=== PATIENT | female | born 1985 | race Caucasian/White ===

== ENCOUNTER → 2016-12-03 | Outpatient (CLI) | payer OTHER | LOC: FIMAGING 10:02 | PROVIDERS: ATTEND Advanced Practice Midwife | DX: O26.872 Cervical shortening, second trimester (principal); Z3A.19 19 weeks gestation of pregnancy ==

== ENCOUNTER → 2016-12-17 | Outpatient (CLI) | payer OTHER | LOC: FIMAGING 12:50 | PROVIDERS: ATTEND Advanced Practice Midwife | DX: Z34.02 Encounter for supervision of normal first pregnancy, second trimester (principal); Z3A.21 21 weeks gestation of pregnancy ==

== ENCOUNTER 2017-04-26 09:43 | Inpatient (IN) | payer OTHER ==
[2017-04-26] MEDS ORDERED: OXYTOCIN/RINGERS LACTATE 1,000 ML IV PRN (10:14)
[2017-04-26] MEDS ORDERED: OLIVE OIL 118 ML BTL MISC PRN (10:14)
[2017-04-26] MEDS ORDERED: EPSOM SALT 454 GM TP PRN (10:14)
[2017-04-26] MEDS ORDERED: TERBUTALINE SULFATE 1 MG/ML VIAL IV PRN (10:14)
[2017-04-26] MEDS ORDERED: LR 1,000 ML IV PRN (10:14)
[2017-04-26] MEDS ORDERED: OXYTOCIN/RINGERS LACTATE 500 ML IV SCH (11:00)
[2017-04-26 11:06] LABS: ALANINE AMINOTRANSFERASE 94 IU/L (9-52); ASPARTATE AMINOTRANSFERASE 74 IU/L (14-46); BILIRUBIN,TOTAL 1.3 mg/dL (0.1-1.4); BILIRUBIN-CONJUGATED 0.5 mg/dL (0.0-0.5); BILIRUBIN-UNCONJUGATED 0.8 mg/dL (0.0-1.1); CREATININE 0.6 mg/dL (0.6-1.0); GLOMERULAR FILTRATION RATE > 60; LACTATE DEHYDROGENASE 659 IU/L (313-618); SPECIMEN HEMOLYSIS 104; URIC ACID 5.5 mg/dL (2.5-6.8)
[2017-04-26 11:13] LABS: % IMMATURE GRANULYOCYTES 0.6 % (0.0-1.1); ABSOLUTE IMMATURE GRANULOCYTES 0.15 10^3/uL (0.00-0.10); ADD DIFF? NO; ADD MORPH? NO; ADD SCAN? NO; ATYPICAL LYMPHOCYTE FLAG 0 (0-99); FRAGMENT RBC FLAG 0 (0-99); HEMATOCRIT 38.2 % (38.0-47.0); LEFT SHIFT FLG 0 (0-99); LIPEMIA HEMOLYSIS FLAG 90 (0-99); MEAN CELL HEMOGLOBIN 33.8 pg (27.9-34.1); MEAN CELL HEMOGLOBIN CONCENTR. 36.6 g/dL (32.4-36.7); MEAN CELL VOLUME 92.3 fL (81.5-99.8); MEAN PLATELET VOLUME 11.7 fL (8.7-11.7); PLATELET CLUMPS FLAG 0 (0-99); PLATELET COUNT 184 10^3/uL (150-400); RED BLOOD CELL COUNT 4.14 10^6/uL (4.18-5.33); RED CELL DISTRIBUTION WIDTH 12.2 % (11.5-15.2)
--- NOTE | 2017-04-26 11:38 | GHP ---
[f rep st] PREOP HISTORY AND PHYSICAL DATE OF ADMISSION: 04/26/2017 ADMISSION DIAGNOSIS: Intrauterine at 40-1/7 weeks' gestation, with prolonged rupture of membranes and inadequate contractions. HISTORY OF PRESENT ILLNESS: The patient is a 31-year-old 1, para 0, who is 40-1/7 weeks' gestation. She initially received care at [facility] and then transferred to the [facility] and received the remainder of her care there. The patient had spontaneous rupture of membranes of clear fluid on Wednesday, 04/24 at 1900. She began having mild contractions 30 minutes after that, but did not progress into adequate labor. She presented to the [facility], and they put in a Cook catheter at 1530 on 04/25. The patient began having contractions increasing in frequency and intensity at 9 p.m. She had been sent home from the [facility] and came back in, in the morning, at 3:30. She was examined on and was found to be 5 cm dilated, 90% effaced, and -1 station. She was re- examined 5 hours later, at 8:30 in the morning, and was still 5 cm dilated, 90% effaced, and -1 station. She presents to Labor and Delivery for augmentation of labor and possible pain management. Her status is reassuring. Patient is afebrile. PAST MEDICAL HISTORY: Significant for hypothyroidism diagnosed in . History of depression in college that required medication, but she has not had any depression since then. MEDICATIONS: Synthroid. PAST SURGICAL HISTORY: Removal of a cyst in her neck. ALLERGIES: No known drug allergies. SOCIAL HISTORY: Patient is . She denies tobacco, alcohol, or drug use. FAMILY MEDICAL HISTORY: Noncontributory. 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 She is receiving regular care at the [facility]. The patient does have a history of an abnormal Pap when she was 17. The colpo was negative. She denies any history of any sexually transmitted diseases. REVIEW OF SYSTEMS: Ten-point review of systems is negative, with the exception of the positive contractions, good movement, and loss of fluid. She denies any vaginal bleeding. She denies any headache, changes in vision, nausea , or vomiting. PHYSICAL EXAM: VITAL SIGNS: Stable. She did have 2 borderline elevated blood pressures of 141/97 and 145/89. GENERAL: Her general appearance is exhausted, but alert and oriented x3. Her psych exam is appropriate affect. NECK: Mobile , and there are no masses noted. HEART: Her heart rate is regular/regular. LUNGS: Her lungs are clear to auscultation bilaterally. ABDOMEN: Her abdomen is gravid, nondistended, nontender. EXTREMITIES: Reveal no calf tenderness or edema. PELVIC: Cervical exam was deferred. heart tracing is category 2. She is having variable decelerations but positive accelerations and no other decelerations. She is having contractions every 5-7 minutes. LABORATORY DATA: The patient's labs, blood type B positive, antibody screen negative. Rubella immune. GBS negative. HBsAg negative. HIV negative. ASSESSMENT AND PLAN: A 31-year-old 1, para 0, at 40-1/2 weeks' gestation with prolonged rupture of membranes and elevated blood pressures. We had a long discussion about management options. The patient is agreeable to starting Pitocin. We discussed pain management options. We will check preeclampsia labs and follow her blood pressures. The patient will be managed expectantly. /[id number]/MODL MTDD
--- NOTE | 2017-04-26 12:24 | OBPROG ---
OBG Labor Progress Note Assessment/Plan: Assessment: IUP at 40+ wks, prolonged ROM, GBS- elevated WBCs, afebrile Gestational HTN, slightly elevated LFTs, asymptomatic Plan: homebirth transfer, pitocin and encouraged JOLIE due to fatigue with B/P now, will cont to observe and recheck LFTs, hydralazine if B/P go higher 04/26/17 12:15 Subjective: Pt is exhausted - trying to sleep . Rec JOLIE. pain in back Objective: 04/26/17 10:55 04/26/17 10:10 Patient ABO/Rh B POSITIVE 04/26/17 10:10 Uric Acid 5.5 mg/dL (2.5-6.8) 04/26/17 10:10 Total Bilirubin 1.3 mg/dL (0.1-1.4) 04/26/17 10:10 Conjugated Bilirubin 0.5 mg/dL (0.0-0.5) 04/26/17 10:10 Unconjugated Bilirubin 0.8 mg/dL (0.0-1.1) 04/26/17 10:10 AST 74 IU/L (14-46) H 04/26/17 10:10 ALT 94 IU/L (9-52) H 04/26/17 10:10 Lactate Dehydrogenase 659 IU/L (313-618) H 04/26/17 10:10 Monreal Current Contraction Pattern: Regular FHR (bpm): 130 FHR Pattern Variability: Moderate FHR Category: 1 Membranes: SROM (prolonged at 1900 on 04/24) Amniotic Fluid Color: Clear (recent blood with fluid) Oxytocin Orders Assessment - Pre-Induction/Augmentation Assessment Gestational Age: 40 week(s) and 1 day(s) ICD10 Worksheet Patient Problems: Problems Problem Status Onset PROM with onset of labor more than 24 hours following rupture Acute PROM with onset of labor within 24 hours of rupture Acute - ICD10 Problem Qualifiers (1) PROM with onset of labor within 24 hours of rupture Qualifiers: PROM gestational age: P (2) PROM with onset of labor more than 24 hours following rupture Qualifiers: PROM gestational age: P
[2017-04-26] MEDS: LEVOTHYROXINE 50 MCG TAB PO SCH (13:57)
--- NOTE | 2017-04-26 14:12 | OBPROG ---
OBG Labor Progress Note Assessment/Plan: Assessment: IUP at 40+ wks, prolonged ROM, GBS- elevated WBCs, afebrile Gestational HTN, slightly elevated LFTs, asymptomatic Plan: homebirth transfer, pitocin and encouraged JOLIE due to fatigue - pt declines and is using Nitrous with B/P now, will cont to observe and recheck LFTs, hydralazine if B/P go higher 04/26/17 12:15 04/26/17 14:09 Subjective: Very tired but declines JOLIE. using Nitrous with some help. lots of pressure. ok with a check Objective: 04/26/17 10:55 04/26/17 10:10 Patient ABO/Rh B POSITIVE 04/26/17 10:10 Uric Acid 5.5 mg/dL (2.5-6.8) 04/26/17 10:10 Total Bilirubin 1.3 mg/dL (0.1-1.4) 04/26/17 10:10 Conjugated Bilirubin 0.5 mg/dL (0.0-0.5) 04/26/17 10:10 Unconjugated Bilirubin 0.8 mg/dL (0.0-1.1) 04/26/17 10:10 AST 74 IU/L (14-46) H 04/26/17 10:10 ALT 94 IU/L (9-52) H 04/26/17 10:10 Lactate Dehydrogenase 659 IU/L (313-618) H 04/26/17 10:10 - SVE Dilation (cm): 8 Effacement (%): 90 Station: 0 Monreal Current Contraction Pattern: Regular (q 3-5 min on 4 mu/min pit) FHR (bpm): 130 FHR Pattern Variability: Moderate FHR Category: 1 Membranes: SROM (prolonged at 1900 on 04/24) Amniotic Fluid Color: Clear (recent blood with fluid) Oxytocin Orders Assessment - Pre-Induction/Augmentation Assessment Gestational Age: 40 week(s) and 1 day(s) ICD10 Worksheet Patient Problems: Problems Problem Status Onset PROM with onset of labor more than 24 hours following rupture Acute - ICD10 Problem Qualifiers (1) PROM with onset of labor within 24 hours of rupture Qualifiers: PROM gestational age: P (2) PROM with onset of labor more than 24 hours following rupture Qualifiers: PROM gestational age: P
[2017-04-26 14:23] LABS: % IMMATURE GRANULYOCYTES 0.5 % (0.0-1.1); ABSOLUTE IMMATURE GRANULOCYTES 0.12 10^3/uL (0.00-0.10); ADD DIFF? NO; ADD MORPH? NO; ADD SCAN? NO; ATYPICAL LYMPHOCYTE FLAG 0 (0-99); FRAGMENT RBC FLAG 0 (0-99); HEMOGLOBIN 13.8 g/dL (12.6-16.3); LEFT SHIFT FLG 10 (0-99); LIPEMIA HEMOLYSIS FLAG 90 (0-99); MEAN CELL HEMOGLOBIN 34.6 pg (27.9-34.1); MEAN CELL HEMOGLOBIN CONCENTR. 37.3 g/dL (32.4-36.7); MEAN CELL VOLUME 92.7 fL (81.5-99.8); MEAN PLATELET VOLUME 11.4 fL (8.7-11.7); PLATELET CLUMPS FLAG 0 (0-99); PLATELET COUNT 171 10^3/uL (150-400); RED BLOOD CELL COUNT 3.99 10^6/uL (4.18-5.33); RED CELL DISTRIBUTION WIDTH 12.2 % (11.5-15.2)
[2017-04-26 14:38] LABS: ALANINE AMINOTRANSFERASE 94 IU/L (9-52); ASPARTATE AMINOTRANSFERASE 56 IU/L (14-46); CREATININE 0.6 mg/dL (0.6-1.0); GLOMERULAR FILTRATION RATE > 60; LACTATE DEHYDROGENASE 475 IU/L (313-618); URIC ACID 5.8 mg/dL (2.5-6.8)
[2017-04-26] MEDS ORDERED: OLIVE OIL 118 ML BTL ONE (15:42)
[2017-04-26] MEDS ORDERED: LIDOCAINE 1% 300 MG/30 ML SDV ONE (15:42)
[2017-04-26] MEDS ORDERED: TERBUTALINE SULFATE 1 MG/ML VIAL ONE (15:43)
[2017-04-26] MEDS ORDERED: AMMONIA AROMATIC 1 EACH AMP IH ONE (15:43)
[2017-04-26] MEDS ORDERED: MISOPROSTOL 200 MCG TAB ONE (15:43)
[2017-04-26] MEDS: IBUPROFEN 600 MG TAB PO PRN (19:29)
[2017-04-26] MEDS ORDERED: HYDROCODONE/APAP 5/325 TAB PO PRN (19:46)
[2017-04-26] MEDS ORDERED: ACETAMINOPHEN 325 MG TAB PO PRN (19:46)
[2017-04-26] MEDS ORDERED: ceFAZolin 2 GM in NS 100 ML IV ONE (19:49)
--- NOTE | 2017-04-26 19:55 | OBDEL ---
Info Type: Vaginal GBS+: No Indications for Delivery: Spontaneous Labor, SROM (prolonged) Vaginal Delivery - Labor and Delivery Onset of Contractions Date: 04/25/17 Onset of Contractions Time: 21:00 Onset of Contractions Type: Spontaneous Rupture of Membranes Date: 04/24/17 Rupture of Membranes Time: 19:00 Rupture of Membranes Type: Spontaneous Amniotic Fluid Color: Clear, Meconium Stained (during pushing) Dilation Complete Date: 04/26/17 Dilation Complete Time: 16:09 Placenta Delivery Date: 04/26/17 Placenta Delivery Time: 19:08 (heavy bleeding after placenta and manual sweep and some retained membranes manually removed. bleeding less afterwards. U/S done and lining thin) Total Hours of Labor: 22 Laceration: Other (Specify) (none) Vaginal Sponge Count Correct: Yes Vaginal Needle Count Correct: Yes Vaginal Sweep Performed: Yes EBL: 400 Delivery Events: Retained Placenta (membrane fragments) - Medications Labor Augmentation/Induction Methods Used: Pitocin Labor Augmentation/Induction Indication: Other (Specify) (prolonged ROM and arrested cervical dilation by report from [facility]) Data [facility]real Delivery Date: 04/26/17 Delivery Time: 18:59 DUSTY: 04/25/17 Gestational Age: 40 week(s) and 1 day(s) Sex of : Male Score (1 Min): 8 Score (5 Min): 9 ICD10 Worksheet Patient Problems: Problems Problem Status Onset Gestational hypertension Acute (spontaneous vaginal delivery) Acute - ICD10 Problem Qualifiers (1) PROM with onset of labor within 24 hours of rupture Qualifiers: PROM gestational age: P (2) PROM with onset of labor more than 24 hours following rupture Qualifiers: PROM gestational age: P
[2017-04-26] MEDS ORDERED: ceFAZolin 2 GM/DEXTROSE 100 ML IV ONE (20:00)
--- NOTE | 2017-04-26 20:07 | OBGCSDC ---
<MarcusHeather Jose - Last Filed: 04/26/17 19:57> General Delivery Information - General Info : 1 Para: 1 Abortions: 0 Delivery Physician/CNM: Heather Velazquez Admission Date: 04/26/17 Labs: Patient ABO/Rh B POSITIVE 04/26/17 10:10 Hct 37.0 % (38.0-47.0) L 04/26/17 14:00 Vaginal - Diagnosis Labor: Spontaneous Presentation at Delivery: Vertex Rupture of Membranes Type: Spontaneous Amniotic Fluid Color: Clear, Meconium Stained (during pushing) Laceration: Other (Specify) (none) Delivery Events: Retained Placenta (membrane fragments) - Operations/Procedures L&D Analgesia/Anesthesia Type: None - Hospital Course Antepartum: Care with [facility] after transfer from [place]. uncomplicated Intrapartum: SROM on 04/24, clear. nonproductive ctxns and seen at [facility] on 04/25 for cook cath at 15:30. SOOC at 21:00 - admitted to at 3:30 in am 04/26 and was 5/90. 5 hrs later still 5/90. presented to LND, began pitocin. No anesth but very tired. Complete at 16:09. Had HTN on admit and [facility] labs revealed elev LFTs (not double) but stable on recheck 4 hrs later. B/P borderline 120- 140s /80-90s. Asymptomatic and no edema - Delivery Type: Vaginal EBL: 400 Data Mon[facility] Delivery Date: 04/26/17 Delivery Time: 18:59 DUSTY: 04/25/17 Gestational Age: 40 week(s) and 1 day(s) Sex of : Male Score (1 Min): 8 Score (5 Min): 9 Discharge Information - Discharge Information Condition: Good <Imelda Luis - Last Filed: 04/28/17 12:08> General Delivery Information - General Info Labs: Patient ABO/Rh B POSITIVE 04/26/17 10:10 Hct 29.8 % (38.0-47.0) L 04/28/17 06:15 Discharge Information - Discharge Information Discharge Medications: Vitamins Instruction/Follow Up: Four Weeks, Six Weeks Discharge Physician/CNM: Imelda Luis
[2017-04-27 05:07] LABS: % IMMATURE GRANULYOCYTES 0.8 % (0.0-1.1); ABSOLUTE IMMATURE GRANULOCYTES 0.19 10^3/uL (0.00-0.10); ADD DIFF? NO; ADD MORPH? NO; ADD SCAN? NO; ATYPICAL LYMPHOCYTE FLAG 0 (0-99); FRAGMENT RBC FLAG 0 (0-99); HEMATOCRIT 30.7 % (38.0-47.0); HEMOGLOBIN 11.2 g/dL (12.6-16.3); LEFT SHIFT FLG 10 (0-99); LIPEMIA HEMOLYSIS FLAG 90 (0-99); MEAN CELL HEMOGLOBIN 33.7 pg (27.9-34.1); MEAN CELL HEMOGLOBIN CONCENTR. 36.5 g/dL (32.4-36.7); MEAN CELL VOLUME 92.5 fL (81.5-99.8); MEAN PLATELET VOLUME 11.4 fL (8.7-11.7); PLATELET CLUMPS FLAG 0 (0-99); PLATELET COUNT 163 10^3/uL (150-400); RED BLOOD CELL COUNT 3.32 10^6/uL (4.18-5.33); RED CELL DISTRIBUTION WIDTH 12.3 % (11.5-15.2)
[2017-04-27 05:08] LABS: ALANINE AMINOTRANSFERASE 64 IU/L (9-52); ASPARTATE AMINOTRANSFERASE 58 IU/L (14-46); BILIRUBIN,TOTAL 0.5 mg/dL (0.1-1.4); BILIRUBIN-CONJUGATED 0.2 mg/dL (0.0-0.5); BILIRUBIN-UNCONJUGATED 0.3 mg/dL (0.0-1.1); CREATININE 0.7 mg/dL (0.6-1.0); GLOMERULAR FILTRATION RATE > 60; LACTATE DEHYDROGENASE 344 IU/L (313-618); URIC ACID 5.7 mg/dL (2.5-6.8)
[2017-04-27] MEDS ORDERED: LEVOTHYROXINE 50 MCG TAB PO SCH (06:00)
[2017-04-27] MEDS: LEVOTHYROXINE 50 MCG TAB PO SCH (06:31)
[2017-04-27] MEDS: IBUPROFEN 600 MG TAB PO PRN ×3 (08:03→20:18)
[2017-04-27] MEDS: DOCUSATE SODIUM 100 MG CAP PO PRN ×2 (08:04→20:18)
--- NOTE | 2017-04-27 09:40 | OBPP ---
Progress Note Assessment/Plan: Assessment:pp day 1 but sleepy pain well managed voiding without difficulty vs wnl perineum approximated minimal swelling Plan:expectant management pp day 1 04/27/17 09:38 Subjective: Doing well denies difficulties Objective: 04/27/17 04:49 04/27/17 04:49 Patient ABO/Rh B POSITIVE 04/26/17 10:10 Uric Acid 5.7 mg/dL (2.5-6.8) 04/27/17 04:49 Total Bilirubin 0.5 mg/dL (0.1-1.4) D 04/27/17 04:49 Conjugated Bilirubin 0.2 mg/dL (0.0-0.5) 04/27/17 04:49 Unconjugated Bilirubin 0.3 mg/dL (0.0-1.1) 04/27/17 04:49 AST 58 IU/L (14-46) H 04/27/17 04:49 ALT 64 IU/L (9-52) H 04/27/17 04:49 Lactate Dehydrogenase 344 IU/L (313-618) 04/27/17 04:49 Temp Pulse Resp BP Pulse Ox 36.4 C 92 16 116/65 96 04/27/17 00:56 04/27/17 00:56 04/27/17 00:56 04/27/17 00:56 04/27/17 00:56 Uterine Position/Fundal Height: At Umbilicus Uterine Tone: Firm Physical Exam - Physical Exam General Appearance: WD/WN, alert, no apparent distress Abdomen: other (ff@ U scant rubra lochia) DTR- Lower Extremities: Knee (R): 1+, Knee (L): 1+ (no clonus) Skin: normal color, warm/dry Neuro/Psych: no motor/sensory deficits, alert, normal mood/affect, oriented x 3
[2017-04-27] MEDS: IRON POLYSAC/IRON HEME 28 MG TAB PO SCH ×2 (14:07→20:18)
[2017-04-27 20:14] VITALS: BP 130/77; PULSE 80; RESP 18; TEMP 97.8; O2SAT 98
[2017-04-28 06:30] LABS: % IMMATURE GRANULYOCYTES 0.7 % (0.0-1.1); ABSOLUTE IMMATURE GRANULOCYTES 0.09 10^3/uL (0.00-0.10); ADD DIFF? NO; ADD MORPH? NO; ADD SCAN? NO; ATYPICAL LYMPHOCYTE FLAG 0 (0-99); FRAGMENT RBC FLAG 0 (0-99); HEMATOCRIT 29.8 % (38.0-47.0); HEMOGLOBIN 10.4 g/dL (12.6-16.3); LEFT SHIFT FLG 0 (0-99); LIPEMIA HEMOLYSIS FLAG 90 (0-99); MEAN CELL HEMOGLOBIN 33.4 pg (27.9-34.1); MEAN CELL HEMOGLOBIN CONCENTR. 34.9 g/dL (32.4-36.7); MEAN CELL VOLUME 95.8 fL (81.5-99.8); MEAN PLATELET VOLUME 11.1 fL (8.7-11.7); PLATELET CLUMPS FLAG 0 (0-99); PLATELET COUNT 164 10^3/uL (150-400); RED BLOOD CELL COUNT 3.11 10^6/uL (4.18-5.33); RED CELL DISTRIBUTION WIDTH 12.8 % (11.5-15.2)
[2017-04-28] MEDS: LEVOTHYROXINE 50 MCG TAB PO SCH (06:46)
[2017-04-28 06:54] LABS: ALANINE AMINOTRANSFERASE 59 IU/L (9-52); ASPARTATE AMINOTRANSFERASE 52 IU/L (14-46); BILIRUBIN,TOTAL 0.3 mg/dL (0.1-1.4); BILIRUBIN-CONJUGATED 0.3 mg/dL (0.0-0.5); CREATININE 0.6 mg/dL (0.6-1.0); GLOMERULAR FILTRATION RATE > 60; LACTATE DEHYDROGENASE 358 IU/L (313-618); URIC ACID 4.9 mg/dL (2.5-6.8)
[2017-04-28] MEDS: IRON POLYSAC/IRON HEME 28 MG TAB PO SCH (09:52)
--- NOTE | 2017-04-28 12:07 | OBPP ---
Progress Note Assessment/Plan: Assessment: 31 y/o PPD #2 s/p augmentation of labor Plan: D/c home today declines Ibuprofen rx. Follow-up 1 weeks for a BP check and 4 and 6 weeks. 04/28/17 12:03 Subjective: Pt is doing well this am. She has min perineal pain controlled with occasional Ibuprofen. No n/v, girma reg diet, ambulating and voiding and has min lochia. Breast feeding is going well and they wish to d/c home. Objective: 04/28/17 06:15 04/28/17 06:15 Patient ABO/Rh B POSITIVE 04/26/17 10:10 Uric Acid 4.9 mg/dL (2.5-6.8) 04/28/17 06:15 Total Bilirubin 0.3 mg/dL (0.1-1.4) 04/28/17 06:15 Conjugated Bilirubin 0.3 mg/dL (0.0-0.5) 04/28/17 06:15 Unconjugated Bilirubin 0.0 mg/dL (0.0-1.1) 04/28/17 06:15 AST 52 IU/L (14-46) H 04/28/17 06:15 ALT 59 IU/L (9-52) H 04/28/17 06:15 Lactate Dehydrogenase 358 IU/L (313-618) 04/28/17 06:15 Temp Pulse Resp BP Pulse Ox 36.6 C 80 18 130/77 H 98 04/27/17 20:00 04/27/17 20:00 04/27/17 20:00 04/27/17 20:00 04/27/17 20:00 Uterine Position/Fundal Height: Umbilicus -3 Uterine Tone: Firm Physical Exam - Physical Exam General Appearance: WD/WN, alert, no apparent distress Neck: non-tender, full range of motion, supple Respiratory: chest non-tender, lungs clear, normal breath sounds Cardiac/Chest: regular rate, rhythm Abdomen: normal bowel sounds Extremities: swelling (no), Javon's sign (neg)
== END 2017-04-28 14:00 | disposition home or self-care (01) | DRG 767 ==
LOC: FLD 09:43 → FOB 22:11
PROVIDERS: ADMIT Obstetrics & Gynecology; ATTEND Obstetrics & Gynecology
DX: O42.02 Full-term premature rupture of membranes, onset of labor within 24 hours of rupture (principal); O72.0 Third-stage hemorrhage; O62.0 Primary inadequate contractions; O77.0 Labor and delivery complicated by meconium in amniotic fluid; O13.4 Gestational [pregnancy-induced] hypertension without significant proteinuria, complicating childbirth; O48.0 Post-term pregnancy; O99.284 Endocrine, nutritional and metabolic diseases complicating childbirth; E03.9 Hypothyroidism, unspecified; Z3A.40 40 weeks gestation of pregnancy; Z37.0 Single live birth
CPT/HCPCS: J0690; J2590; J3105